=== PATIENT | male | born 1980 | race African-American/Black ===

== ENCOUNTER 2019-07-30 08:25 | Emergency (ER) | payer MEDICAID ==
[~2019-07-30] VITALS: Ht 172.7 cm; Wt 59.0 kg
[2019-07-30 08:29] VITALS: BP 118/81
[2019-07-30] MEDS ORDERED: NKM (08:32)
--- NOTE | 2019-07-30 08:34 | NUR ---
ED Nurse Note: Patient walked into ED from home c/o abscess on the left lower chin/jaw getting bigger and worse. patient reports he recently changed to use regular razor, the abscess was there for about 1 week. patient reports 3/10 pain. warmth noted around the abscess. patient denies problem eating or swallowing. patient is alert awake x4 ambulatory breathing unlabored and even, speaking in full sentences.
[2019-07-30] MEDS ORDERED: Lidocaine 1% 10mg/ml/EPI 0.01mg/ml 20ml INJ ONE (09:00)
--- NOTE | 2019-07-30 09:24 | Emergency Room Report ---
History of Present Illness General Chief Complaint: Skin Rash/Abscess Source: Patient Present Illness HPI Patient presents with complaints of swelling to the left lower facial area Reports that several days ago the area was larger in size he feels that had decreased however still was swollen and presents for further evaluation Denies any fevers or chills patient has had previous Hardware secondary to surgery in that area After major facial trauma this is several years ago He has not been back to his facial specialist and reports that he was supposed to have taken some of the hardware out Denies any fevers or chills denies any neck pain denies any trismus Allergies: Coded Allergies: No Known Allergies (Unverified , 07/30/19) Patient History Past Medical History: see triage record Reviewed Nursing Documentation: PMH: Agreed; PSxH: Agreed Nursing Documentation-PMH Past Medical History: No Stated History Review of Systems All Other Systems: negative except mentioned in HPI Physical Exam Vital Signs Date Time Temp Pulse Resp B/P (MAP) Pulse Ox O2 Delivery O2 Flow Rate FiO2 07/30/19 08:29 98.2 92 18 118/81 96 Room Air Sp02 EP Interpretation: reviewed, normal General Appearance: well appearing, no apparent distress Head: normocephalic, atraumatic Eyes: bilateral eye PERRL, bilateral eye EOMI ENT: other - Approximately 1 x 1 cm palpable fluctuance left lower mandible, the inner aspect of the gingiva does not appear to be involved in this appears to be external, no trismus Neck: supple Respiratory: lungs clear, no respiratory distress, no retraction Cardiovascular #1: regular rate, rhythm Gastrointestinal: non tender, soft Musculoskeletal: normal inspection Neurologic: alert, oriented x3, responsive Skin: other - As above Lymphatic: no adenopathy Procedures Incision and Drainage Incision and Drainage : Consent: Verbal Site: Left lower face Blade Size: 11 I & D Procedure: betadine prep, sterile drapes applied, sterile dressing applied, gauze wick placed Wound Location: face Wound's Depth, Shape: superficial Wound Explored: contaminated Anesthesia: Lidocaine w/ Epi Volume Anesthetic (ccs): 2 Patient Tolerated: Well Complications: None Progress The region in question was cleansed and prepped as noted above small incision was made, there was copious amounts of serosanguineous and pus released from the area I did express the area with saline as well, with further lavage, a small packing was placed as well and patient tolerated well Medical Decision Making Diagnostic Impression: Primary Impression: Abscess ER Course Given the appearance and the patient's presentation I felt that incision and drainage was warranted emergently this procedure was performed there was copious amounts of pus that was released Patient is placed on antibiotics after initial dose here I discussed with him further the importance of close follow-up with his facial specialty specifically given that there is hardware and previous surgery in that location With his previous repeat infections Very concerning which can lead to worsening problems osteomyelitis and other severe infectious pathology patient voices understanding of this and will follow urgently Last Vital Signs Date Time Temp Pulse Resp B/P (MAP) Pulse Ox O2 Delivery O2 Flow Rate FiO2 07/30/19 08:29 98.2 92 18 118/81 (93) 96 Room Air Status: improved Disposition: HOME, SELF-CARE Condition: Improved Scripts Ibuprofen* (MOTRIN*) 600 Mg Tablet 600 MG ORAL Q8H PRN for For Pain, #20 TAB 0 Refills Prov: John Valdes DO 07/30/19 Amoxicillin/Potassium Clav 875-125* (AUGMENTIN 875-125 TABLET*) 1 Each Tablet 1 TAB ORAL TWICE A DAY, #20 TAB Prov: John Valdes DO 07/30/19 Referrals: NOT CHOSEN IPA/MD,REFERRING (PCP) Additional Instructions: Patient is provided with the discharge instructions notified to follow up with primary doctor in the next 2-3 days otherwise return to the er with any worsening symptoms. Please note that this report is being documented using [employer] technology. This can lead to erroneous entry secondary to incorrect interpretation by the dictating instrument. John Valdes DO Jul 30, 2019 09:24
[2019-07-30] MEDS ORDERED: AUGMENTIN 875-1 EAC1 ORAL (09:39)
[2019-07-30] MEDS ORDERED: IBUPROFEN600 MG ORAL (09:39)
[2019-07-30] MEDS ORDERED: Augmentin 875mg Tab ORAL ONE (09:45)
[2019-07-30 09:47] VITALS: BP 118/81
--- NOTE | 2019-07-30 09:52 | NUR ---
ER DISCHARGE NOTE: Patient is cleared to be discharged per THANG ORTEGA, pt is aox4, on room air, with stable vital signs. dressing applied as ordered. pt was given dc and prescription instructions, pt was able to verbalize understanding, pt id band removed without complications. pt is able to ambulate with steady gait. pt took all belongings.
== END 2019-07-30 09:47 | disposition home or self-care (01) ==
LOC: EMR 08:36
DX: L02.01 Cutaneous abscess of face (principal)
CPT/HCPCS: 10060; Z7502; 99283